=== PATIENT | female | born 1995 | race Caucasian/White ===

== ENCOUNTER 2020-12-09 11:09 | Emergency (ER) | payer MEDICAID ==
[~2020-12-09] VITALS: Ht 162.6 cm; Wt 68.2 kg
[2020-12-09] MEDS ORDERED: OLAN10TA74 PO (11:21)
[2020-12-09] MEDS ORDERED: LURA60TA PO (11:21)
[2020-12-09] MEDS ORDERED: VENL-68 PO (11:21)
[2020-12-09] MEDS ORDERED: TRAZ-257 PO (11:21)
[2020-12-09 11:54] VITALS: BP 132/93
== END 2020-12-09 13:00 | disposition home or self-care (01) ==
LOC: EMS 11:16
DX: F25.9 Schizoaffective disorder, unspecified (principal); F32.9 Major depressive disorder, single episode, unspecified
CPT/HCPCS: 99284; Z7502

== ENCOUNTER 2020-12-24 21:22 | Inpatient (IN) | payer MEDICAID, MEDICARE ==
[~2020-12-24] VITALS: Ht 167.6 cm; Wt 69.1 kg
[~2020-12-24 21:22] MED LIST: LURA60TA PO; OLAN10TA74 PO; TRAZ-257 PO; VENL-68 PO
[2020-12-24] MEDS ORDERED: DiphenhydrAMINE HCL 50 MG/ML VIAL IM ONE (22:00)
[2020-12-24] MEDS ORDERED: HALOPERIDOL LACTATE 5 MG/ML VIAL IM ONE (22:00)
[2020-12-24] MEDS ORDERED: LORazepam 2 MG/ML VIAL IM ONE (22:00)
[2020-12-24 22:31] LABS: COVID AG,FIA SOURCE NASOPHARYNGEAL
[2020-12-24] MEDS ORDERED: ZOLPIDEM TARTRATE 10 MG TABLET PO PRN (23:15)
[2020-12-24] MEDS ORDERED: LORazepam 2 MG TABLET PO PRN (23:15)
[2020-12-24] MEDS ORDERED: HALOPERIDOL 5 MG TABLET PO PRN (23:15)
[2020-12-25 00:21] LABS: BASOPHILS % (AUTO) 0.9 % (0.0-2.0); EOSINOPHILS % (AUTO) 1.3 % (1.0-6.0); HEMATOCRIT 41.6 % (36-46); HEMOGLOBIN 13.9 g/dL (12.0-16.0); LYMPHOCYTES # (AUTO) 2.2 K/uL (1.0-4.8); MEAN CORPUSCULAR HEMOGLOBIN 29.7 pg (26.0-34.0); MEAN CORPUSCULAR HGB CONC 33.5 G/dL (31.0-37.0); MEAN CORPUSCULAR VOLUME 89 fL (80-100); MONOCYTES # (AUTO) 0.8 K/uL (0.1-1.0); MONOCYTES % (AUTO) 9.3 % (2.0-9.0); NEUTROPHILS # (AUTO) 5.1 K/uL (1.8-7.7); NEUTROPHILS % (AUTO) 61.5 % (40.0-70.0); PLATELET COUNT (AUTO) 210 K/uL (150-450); RED CELL DISTRIBUTION WIDTH 12.7 % (11.5-14.5)
[2020-12-25 00:26] LABS: ANION GAP 5 mmol/L (8-16); CARBON DIOXIDE 32 mmol/L (22-29); CHLORIDE 104 mmol/L (98-107); CREATININE 0.81 mg/dL (0.60-1.30); GLOMERULAR FILTR. RATE CALC > 60 mL/min (>60); GLUCOSE,RANDOM 99 mg/dL (70-110); POTASSIUM 3.7 mmol/L (3.5-5.1); SODIUM SERUM 141 mmol/L (136-145); UREA NITROGEN, BLOOD 6 mg/dL (7-18)
[2020-12-25 00:37] LABS: ALANINE AMINOTRANSFERASE 17 U/L (12-78); ALKALINE PHOSPHATASE 72 U/L (46-116); ASPARTATE AMINOTRANSFERASE 14 U/L (15-37); BILIRUBIN,TOTAL 0.8 mg/dL (0.1-1.0); CHOL/HDL RATIO 2.8 (3.9-5.7); CHOLESTEROL 180 mg/dL (131-200); HCG,QUANTITATIVE < 1 mIU/mL (0-6); HDL CHOLESTEROL 65 mg/dL (40-60); LDL CHOL (CALC.) 108 mg/dL (0-130); TOTAL PROTEIN, SERUM 7.4 g/dL (6.4-8.2); TRIGLYCERIDES 35 mg/dL (15-150)
[2020-12-25] MEDS ORDERED: INFLUENZA VIRUS VACCINE QVS 2021-22 (6MO+)/PF 60 MCG/0.5 ML SYRINGE IM. ONE (06:30)
[2020-12-25 08:00] VITALS: BP 109/58
[2020-12-25] MEDS ORDERED: MAGNESIUM HYDROXIDE SUSPENSION 30 ML UDCUP PO PRN (09:00)
[2020-12-25] MEDS ORDERED: ACETAMINOPHEN 325 MG TABLET PO PRN (09:00)
[2020-12-25] MEDS ORDERED: ONDANSETRON HCL 4 MG TABLET PO PRN (09:00)
[2020-12-25] MEDS ORDERED: MAG HYDROX/AL HYDROX/SIMETH ES 30 ML SUSPENSION UDCUP PO PRN (09:00)
[2020-12-25] MEDS ORDERED: ALBUTEROL SULFATE HFA 90 MCG/PUFF 8 GM INHALER IH PRN (09:00)
[2020-12-25] MEDS ORDERED: LOPERAMIDE HCL 2 MG CAPSULE PO PRN (09:00)
[2020-12-25] MEDS ORDERED: OMEPRAZOLE 20 MG CAPSULE PO PRN (09:00)
[2020-12-25] MEDS ORDERED: BACITRACIN 28 GM OINTMENT TP PRN (09:00)
[2020-12-25] MEDS ORDERED: DOCUSATE SODIUM 100 MG CAPSULE PO PRN (09:00)
[2020-12-25] MEDS ORDERED: IBUPROFEN 600 MG TABLET PO PRN (09:00)
[2020-12-25] MEDS ORDERED: BENZOCAINE/MENTHOL LOZENGE PO PRN (09:00)
[2020-12-25] MEDS ORDERED: PETROLATUM,WHITE 28 GM JELLY TP PRN (09:00)
[2020-12-25] MEDS ORDERED: CloNIDine HCL 0.1 MG TABLET PO PRN (09:00)
[2020-12-25] MEDS ORDERED: VENLAFAXINE HCL 75 MG ER CAPSULE PO SCH (10:45)
[2020-12-25 16:43] VITALS: BP 112/71
[2020-12-25 16:44] VITALS: BP 112/71
[2020-12-25] MEDS: LURASIDONE HCL 80 MG TABLET PO SCH (17:28)
[2020-12-25] MEDS ORDERED: LURASIDONE HCL 60 MG TABLET PO SCH (17:30)
[2020-12-25] MEDS: OLANZapine 10 MG TABLET PO SCH (20:16)
[2020-12-26 08:30] VITALS: BP 117/79
[2020-12-26 16:45] VITALS: BP 119/71
[2020-12-26] MEDS: LURASIDONE HCL 80 MG TABLET PO SCH (17:41)
[2020-12-26] MEDS: OLANZapine 10 MG TABLET PO SCH (20:16)
[2020-12-27 08:13] VITALS: BP 146/62
[2020-12-27] MEDS: VENLAFAXINE HCL 75 MG ER CAPSULE PO SCH (14:51)
[2020-12-27 16:26] VITALS: BP 130/79
[2020-12-27] MEDS: LURASIDONE HCL 80 MG TABLET PO SCH (17:07)
[2020-12-27] MEDS: OLANZapine 10 MG TABLET PO SCH (21:04)
[2020-12-28] MEDS: VENLAFAXINE HCL 75 MG ER CAPSULE PO SCH (08:07)
[2020-12-28 08:41] VITALS: BP 105/74
[2020-12-28 16:00] VITALS: BP 115/81
[2020-12-28] MEDS: LURASIDONE HCL 80 MG TABLET PO SCH (17:08)
[2020-12-28] MEDS: OLANZapine 10 MG TABLET PO SCH (20:35)
[2020-12-29] MEDS: VENLAFAXINE HCL 75 MG ER CAPSULE PO SCH (08:34)
[2020-12-29 09:46] VITALS: BP 124/85
== END 2020-12-29 11:50 | disposition home or self-care (01) | DRG 750 ==
LOC: EMS 21:23 → 3EC 12-25 04:00
PROVIDERS: ADMIT Psychiatry & Neurology Psychiatry; ATTEND Psychiatry & Neurology Psychiatry
DX: F25.9 Schizoaffective disorder, unspecified (principal); Z91.14 Patient's other noncompliance with medication regimen; F17.200 Nicotine dependence, unspecified, uncomplicated; F31.9 Bipolar disorder, unspecified; F41.9 Anxiety disorder, unspecified; G47.00 Insomnia, unspecified; K59.00 Constipation, unspecified; Z20.822 Contact with and (suspected) exposure to COVID-19; Z78.1 Physical restraint status; Z79.899 Other long term (current) drug therapy
CPT/HCPCS: 80053; 80061; 84702; 85025; 99285; G0480; J1200; J1630; J2060; Q9967

== ENCOUNTER 2020-12-31 11:54 | Emergency (ER) | payer MEDICAID ==
[~2020-12-31] VITALS: Ht 170.2 cm; Wt 68.1 kg
[~2020-12-31 11:54] MED LIST changes: -TRAZ-257 PO
[2020-12-31 11:57] VITALS: BP 129/96
== END 2020-12-31 14:34 | disposition left against medical advice (07) ==
LOC: EMS 11:54
DX: Z04.6 Encounter for general psychiatric examination, requested by authority (principal); Z53.21 Procedure and treatment not carried out due to patient leaving prior to being seen by health care provider

== ENCOUNTER 2020-12-31 15:34 | Inpatient (IN) | payer MEDICAID ==
[~2020-12-31] VITALS: Ht 162.6 cm; Wt 68.0 kg
[2020-12-31 16:57] LABS: COVID AG,FIA SOURCE NASAL SWAB
[2020-12-31] MEDS: OLANZapine 5 MG TABLET PO ONE ×2 (17:09→17:11)
[2020-12-31 17:16] LABS: BASOPHILS % (AUTO) 0.9 % (0.0-2.0); EOSINOPHILS % (AUTO) 2.3 % (1.0-6.0); HEMATOCRIT 48.4 % (36-46); HEMOGLOBIN 16.1 g/dL (12.0-16.0); LYMPHOCYTES # (AUTO) 3.4 K/uL (1.0-4.8); MEAN CORPUSCULAR HEMOGLOBIN 29.7 pg (26.0-34.0); MEAN CORPUSCULAR HGB CONC 33.2 G/dL (31.0-37.0); MEAN CORPUSCULAR VOLUME 90 fL (80-100); MONOCYTES % (AUTO) 8.2 % (2.0-9.0); NEUTROPHILS # (AUTO) 7.4 K/uL (1.8-7.7); NEUTROPHILS % (AUTO) 60.6 % (40.0-70.0); PLATELET COUNT (AUTO) 317 K/uL (150-450)
[2020-12-31 17:24] LABS: ANION GAP 9 mmol/L (8-16); CALCIUM, TOTAL 9.5 mg/dL (8.8-10.5); CARBON DIOXIDE 30 mmol/L (22-29); CHLORIDE 102 mmol/L (98-107); GLOMERULAR FILTR. RATE CALC > 60 mL/min (>60); GLUCOSE,RANDOM 105 mg/dL (70-110); SODIUM SERUM 141 mmol/L (136-145); UREA NITROGEN, BLOOD 10 mg/dL (7-18)
[2020-12-31 17:31] LABS: ALANINE AMINOTRANSFERASE 17 U/L (12-78); ALBUMIN 4.6 g/dL (3.4-5.0); ALKALINE PHOSPHATASE 79 U/L (46-116); ASPARTATE AMINOTRANSFERASE 15 U/L (15-37); BILIRUBIN,TOTAL 0.9 mg/dL (0.1-1.0); TOTAL PROTEIN, SERUM 8.5 g/dL (6.4-8.2)
[2020-12-31] MEDS ORDERED: LORazepam 2 MG TABLET PO PRN (17:45)
[2020-12-31] MEDS ORDERED: ZOLPIDEM TARTRATE 10 MG TABLET PO PRN (17:45)
[2020-12-31] MEDS ORDERED: HALOPERIDOL 5 MG TABLET PO PRN (17:45)
[2020-12-31 17:46] LABS: HCG,QUANTITATIVE < 1 mIU/mL (0-6)
[2020-12-31 21:55] VITALS: BP 132/93
[2020-12-31] MEDS ORDERED: INFLUENZA VIRUS VACCINE QVS 2021-22 (6MO+)/PF 60 MCG/0.5 ML SYRINGE IM. ONE (22:30)
[2021-01-01 02:21] VITALS: BP 122/88
[2021-01-01] MEDS ORDERED: DiphenhydrAMINE HCL 50 MG/ML VIAL ONE (05:49)
[2021-01-01] MEDS ORDERED: HALOPERIDOL LACTATE 5 MG/ML VIAL ONE (05:49)
[2021-01-01] MEDS ORDERED: LORazepam 2 MG/ML VIAL ONE (05:49)
[2021-01-01] MEDS ORDERED: LORazepam 2 MG/ML VIAL IM ONE (06:00)
[2021-01-01] MEDS ORDERED: DiphenhydrAMINE HCL 50 MG/ML VIAL IM ONE (06:00)
[2021-01-01] MEDS ORDERED: HALOPERIDOL LACTATE 5 MG/ML VIAL IM ONE (06:00)
[2021-01-01] MEDS ORDERED: BENZOCAINE/MENTHOL LOZENGE PO PRN (09:00)
[2021-01-01] MEDS ORDERED: IBUPROFEN 600 MG TABLET PO PRN (09:00)
[2021-01-01] MEDS ORDERED: DOCUSATE SODIUM 100 MG CAPSULE PO PRN (09:00)
[2021-01-01] MEDS ORDERED: OMEPRAZOLE 20 MG CAPSULE PO PRN (09:00)
[2021-01-01] MEDS ORDERED: BACITRACIN 28 GM OINTMENT TP PRN (09:00)
[2021-01-01] MEDS ORDERED: PETROLATUM,WHITE 28 GM JELLY TP PRN (09:00)
[2021-01-01] MEDS ORDERED: MAGNESIUM HYDROXIDE SUSPENSION 30 ML UDCUP PO PRN (09:00)
[2021-01-01] MEDS ORDERED: CloNIDine HCL 0.1 MG TABLET PO PRN (09:00)
[2021-01-01] MEDS ORDERED: ONDANSETRON HCL 4 MG TABLET PO PRN (09:00)
[2021-01-01] MEDS ORDERED: MAG HYDROX/AL HYDROX/SIMETH ES 30 ML SUSPENSION UDCUP PO PRN (09:00)
[2021-01-01] MEDS ORDERED: ACETAMINOPHEN 325 MG TABLET PO PRN (09:00)
[2021-01-01] MEDS ORDERED: LOPERAMIDE HCL 2 MG CAPSULE PO PRN (09:00)
[2021-01-01] MEDS ORDERED: ALBUTEROL SULFATE HFA 90 MCG/PUFF 8 GM INHALER IH PRN (09:00)
[2021-01-01] MEDS: VENLAFAXINE HCL 75 MG ER CAPSULE PO SCH (12:23)
[2021-01-01 16:18] VITALS: BP 100/69
[2021-01-01] MEDS: LURASIDONE HCL 80 MG TABLET PO SCH (16:53)
[2021-01-02 06:01] VITALS: BP 126/84
[2021-01-02 08:01] LABS: BASOPHILS % (AUTO) 1.1 % (0.0-2.0); EOSINOPHILS % (AUTO) 3.8 % (1.0-6.0); HEMATOCRIT 45.5 % (36-46); HEMOGLOBIN 15.3 g/dL (12.0-16.0); LYMPHOCYTES # (AUTO) 3.3 K/uL (1.0-4.8); LYMPHOCYTES % (AUTO) 44.4 % (22.0-44.0); MEAN CORPUSCULAR HEMOGLOBIN 30.3 pg (26.0-34.0); MEAN CORPUSCULAR HGB CONC 33.7 G/dL (31.0-37.0); MEAN CORPUSCULAR VOLUME 90 fL (80-100); MONOCYTES # (AUTO) 0.7 K/uL (0.1-1.0); MONOCYTES % (AUTO) 9.1 % (2.0-9.0); NEUTROPHILS # (AUTO) 3.1 K/uL (1.8-7.7); NEUTROPHILS % (AUTO) 41.6 % (40.0-70.0); PLATELET COUNT (AUTO) 266 K/uL (150-450); RED BLOOD CELL COUNT(AUTO) 5.06 MIL/uL (4.00-5.20); RED CELL DISTRIBUTION WIDTH 12.9 % (11.5-14.5)
[2021-01-02 08:24] LABS: ANION GAP 9 mmol/L (8-16); CALCIUM, TOTAL 9.3 mg/dL (8.8-10.5); CARBON DIOXIDE 31 mmol/L (22-29); CHLORIDE 105 mmol/L (98-107); CHOL/HDL RATIO 3.3 (3.9-5.7); CHOLESTEROL 179 mg/dL (131-200); CREATININE 1.06 mg/dL (0.60-1.30); GLOMERULAR FILTR. RATE CALC > 60 mL/min (>60); GLUCOSE,RANDOM 114 mg/dL (70-110); HDL CHOLESTEROL 55 mg/dL (40-60); LDL CHOL (CALC.) 113 mg/dL (0-130); POTASSIUM 4.6 mmol/L (3.5-5.1); SODIUM SERUM 145 mmol/L (136-145); TRIGLYCERIDES 55 mg/dL (15-150); UREA NITROGEN, BLOOD 13 mg/dL (7-18)
[2021-01-02 08:25] VITALS: BP 120/79
[2021-01-02] MEDS: VENLAFAXINE HCL 75 MG ER CAPSULE PO SCH (09:03)
[2021-01-02 16:21] VITALS: BP 126/71
[2021-01-02] MEDS: LURASIDONE HCL 80 MG TABLET PO SCH (18:35)
[2021-01-03 05:04] VITALS: BP 124/76
[2021-01-03] MEDS: VENLAFAXINE HCL 75 MG ER CAPSULE PO SCH (09:02)
[2021-01-03 10:29] VITALS: BP 128/74
[2021-01-03 16:15] VITALS: BP 116/78
[2021-01-03] MEDS: LURASIDONE HCL 80 MG TABLET PO SCH (16:49)
[2021-01-04 03:58] VITALS: BP 126/71
[2021-01-04 08:22] VITALS: BP 100/60
[2021-01-04] MEDS: VENLAFAXINE HCL 75 MG ER CAPSULE PO SCH (08:55)
[2021-01-04 16:07] VITALS: BP 122/80
[2021-01-04] MEDS: LURASIDONE HCL 80 MG TABLET PO SCH (17:05)
[2021-01-05 04:36] VITALS: BP 125/78
[2021-01-05 08:29] VITALS: BP 128/72
[2021-01-05] MEDS: VENLAFAXINE HCL 75 MG ER CAPSULE PO SCH (08:37)
[2021-01-05] MEDS ORDERED: VENL-67 PO (15:44)
[2021-01-05] MEDS ORDERED: LURA80TA2 PO (15:44)
[2021-01-05 16:18] VITALS: BP 114/70
== END 2021-01-05 17:52 | disposition home or self-care (01) | DRG 753 ==
LOC: EMS 15:36 → B3A 18:15
PROVIDERS: ADMIT Psychiatry & Neurology Psychiatry; ATTEND Psychiatry & Neurology Psychiatry
DX: F31.2 Bipolar disorder, current episode manic severe with psychotic features (principal); Z91.14 Patient's other noncompliance with medication regimen; F41.9 Anxiety disorder, unspecified; G47.00 Insomnia, unspecified; K59.00 Constipation, unspecified
CPT/HCPCS: 80048; 80053; 80061; 84702; 85025; 87081; 99285; G0480; J1200; J1630; J2060